=== PATIENT | male | born 1940 | race Caucasian/White ===

== ENCOUNTER 2017-09-22 08:59 | Emergency (ER) | payer MEDICARE, OTHER ==
--- NOTE | 2017-09-22 09:40 | EDM.PDOC ---
ED HPI GENERAL MEDICAL PROBLEM - General Chief Complaint: Trauma Stated Complaint: [id number] SLIPPED ON ICE AND HIT HEAD AT HOME Time Seen by Provider: 09/22/17 09:34 Source of Information: Reports: Patient History Limitations: Reports: No Limitations - History of Present Illness INITIAL COMMENTS - FREE TEXT/NARRATIVE: This 77 yo male patient reports to the ED due to a ground level fall, hitting the back of his head with a possible loss of consciousness. The patient reports he was going out to start his 's car this morning when he slipped on an icy patch and hit his head. The patient reports he was "seeing stars" after the fall. The patient has a wound to the back of his head with no active bleeding. Onset: Today Onset Date: 09/22/17 Onset Time: 07:30 Duration: Resolved Prior to Arrival Location: Reports: Head (posterior), Neck (right sided neck stiffness) Quality: Reports: Ache, Dull Severity: Moderate Improves with: Reports: None Worsens with: Reports: None Associated Symptoms: Reports: No Other Symptoms - Related Data Allergies Allergy/AdvReac Type Severity Reaction Status Date / Time codeine Allergy Cannot Verified 09/22/17 09:11 Remember Home Meds: Home Meds ALPRAZolam [Alprazolam ODT] 0.5 mg PO ASDIRECTED PRN 05/11/14 [History] Acetaminophen 500 mg PO ASDIRECTED PRN 05/11/14 [History] Aspirin [Ecotrin] 325 mg PO DAILY 05/11/14 [History] Enalapril [Vasotec] 10 mg PO DAILY 05/11/14 [History] Metoprolol Succinate [Toprol XL] 12.5 mg PO DAILY 05/11/14 [History] Nitroglycerin [Nitrostat] 0.4 mg SL ASDIRECTED PRN 05/11/14 [History] Multivitamin [One Daily Multivitamin] 1 tab PO DAILY 09/22/17 [History] Past Medical History HEENT History: 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, Impaired Vision Other HEENT History: reading glasses Cardiovascular History: Reports: Hypertension Other Cardiovascular History: open heart Respiratory History: Reports: None Gastrointestinal History: Reports: None Genitourinary History: Reports: Other (See Below) Other Genitourinary History: up once a night to go to the bathroom Musculoskeletal History: Reports: None Neurological History: Reports: None Psychiatric History: Reports: Anxiety Endocrine/Metabolic History: Reports: None Hematologic History: Reports: None Immunologic History: Reports: None Oncologic (Cancer) History: Reports: None Dermatologic History: Reports: None - Infectious Disease History Infectious Disease History: Reports: Measles - Past Surgical History Head Surgeries/Procedures: Reports: None Social & Family History - Tobacco Use Smoking Status *Q: Never Smoker Second Hand Smoke Exposure: No - Caffeine Use Caffeine Use: Reports: Coffee - Recreational Drug Use Recreational Drug Use: No Review of Systems - Review of Systems Review Of Systems: ROS reveals no pertinent complaints other than HPI. ED EXAM, GENERAL - Physical Exam Exam: See Below Exam Limited By: No Limitations General Appearance: Alert, WD/WN, Mild Distress Eye Exam: Bilateral Eye: EOMI, Normal Inspection, PERRL Ears: Normal External Exam, Normal Canal, Hearing Grossly Normal, Normal TMs Nose: Normal Inspection, Normal Mucosa, No Blood Throat/Mouth: Normal Inspection, Normal Lips, Normal Teeth, Normal Gums, Normal Oropharynx, Normal Voice, No Airway Compromise Head: Other (abrasion and contusion to the posterior scalp with no active bleeding) Neck: Supple, Tender Lateral (right neck to shoulder) Respiratory/Chest: No Respiratory Distress, Lungs Clear, Normal Breath Sounds, No Accessory Muscle Use, Chest Non-Tender Cardiovascular: Normal Peripheral Pulses, Regular Rate, Rhythm, No Edema, No Gallop, No JVD, No Murmur, No Rub GI/Abdominal: Normal Bowel Sounds, Soft, Non-Tender, No Organomegaly, No Distention, No Abnormal Bruit, No Mass (Male) Exam: Deferred Rectal (Males) Exam: Deferred Back Exam: Normal Inspection, Full Range of Motion, NT Extremities: Normal Inspection, Normal Range of Motion, Non-Tender, Normal Capillary Refill, No Pedal Edema Neurological: Alert, Oriented, CN II-XII Intact, Normal Cognition, Normal Gait, Normal Reflexes, No Motor/Sensory Deficits Psychiatric: Normal Affect, Normal Mood Skin Exam: Warm, Dry, Intact, Normal Color, No Rash Lymphatic: No Adenopathy Course - Vital Signs Last Recorded V/S: Last Vital Signs Temp 35.9 C 09/22/17 09:06 Pulse 54 L 09/22/17 09:06 Resp 16 09/22/17 09:06 BP 143/48 H 09/22/17 09:06 Pulse Ox 98 09/22/17 09:06 - Orders/Labs/Meds Orders: Active Orders 24 hr Category Date Time Status Cervical Spine wo Cont [CT] Urgent Exams 09/22/17 09:26 Ordered Head wo Cont [CT] Urgent Exams 09/22/17 09:26 Ordered Departure - Departure Time of Disposition: 10: Disposition: Home, Self-Care 01 Condition: Fair Clinical Impression: Fall from ground level Contusion of head Qualifiers: Encounter type: initial encounter Contusion of head detail: scalp Qualified Code(s): S00.03XA - Contusion of scalp, initial encounter - Discharge Information Instructions: Facial or Scalp Contusion, [id number], Fall Prevention in the Home, [id number] Forms: ED Department Discharge Care Plan Goals: The patient was advised of the examination and CT results during the visit. The patient was encouraged to rest and ice the area over the next 24 hours. If the patient has any additional symptoms or concerns, the patient should follow-up with his primary care facility or return to the emergency department. - My Orders Last 24 Hours: My Active Orders 09/22/17 09:26 Cervical Spine wo Cont [CT] Urgent Head wo Cont [CT] Urgent - Assessment/Plan Last 24 Hours: My Active Orders 09/22/17 09:26 Cervical Spine wo Cont [CT] Urgent Head wo Cont [CT] Urgent
--- NOTE | 2017-09-22 11:20 | CT ---
CLINICAL HISTORY: 77-year-old male who experienced ground-level fall (possible loss of consciousness) . SCAN TECHNIQUE: Volume acquisition of data from an emergency unenhanced CT scan of the head and brain obtained with the patient lying supine on the Siemens multislice CT scanner [place], [place]. All data archived in the PACS system for storage and study (bone/brain [employer]). INTERPRETATION: 1. Uniformly thick bony calvarium and symmetric clear pneumatization of the mastoid/paranasal sinuses . No sign of skull fracture, underlying brain contusion or epidural/subdural hematoma. 2. Generalized atrophy pattern symmetric and consistent with age. Underlying mirror-image normal vent ricular system. 3. Physiologic midline pineal calcifications (symmetric faint choroid plexus calcifications). 4. No focal areas of ischemic infarct or encephalomalacia. No sign of acute intracerebral/reticular/s ubarachnoid bleed. 5. cerebellum and brainstem unremarkable. CONCLUSION: Age-appropriate atrophy. No sign of skull fracture or closed head injury.
--- NOTE | 2017-09-22 11:40 | CT ---
CLINICAL HISTORY: 77-year-old male injured in ground-level fall (possible loss of consciousness). CT scan head unremarkable. SCAN TECHNIQUE: Volume acquisition of data from an emergency unenhanced CT scan of the cervical spine obtained with the patient lying supine on the Siemens multislice scanner [place], [place]. All data archived in the PACS system for storage, reformatting axial/sagittal/c oronal planes and study. INTERPRETATION: 1. 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 2. No sign of prevertebral soft tissue swelling, cervical fracture or spondylolisthesis. 3. No jumped locked facets or other interspace narrowing. No cervical rib anomalies. 4. Medial clavicles and first 2 ribs unremarkable on both sides. Lung apices clear. 5. No basal skull fracture. Symmetric clear pneumatization of the mastoid sinuses. Normal TMJs. CONCLUSION: No cervical fracture.
== END 2017-09-22 10:36 | disposition home or self-care (01) ==
LOC: DL.ED 08:59
DX: S00.03XA Contusion of scalp, initial encounter (principal); I10 Essential (primary) hypertension; Z88.5 Allergy status to narcotic agent; Z79.899 Other long term (current) drug therapy; Z79.82 Long term (current) use of aspirin; W00.0XXA Fall on same level due to ice and snow, initial encounter
CPT/HCPCS: 70450; 72125; 99283; 99284

== ENCOUNTER 2017-12-02 02:32 | Emergency (ER) | payer MEDICARE, OTHER ==
[2017-12-02] MEDS: Acetaminophen 325 MG Tab PO ONE (02:50)
--- NOTE | 2017-12-02 02:56 | EDM.PDOC ---
ED HPI GENERAL MEDICAL PROBLEM - General Chief Complaint: ENT Problem Stated Complaint: SORE THROAT [id number] Time Seen by Provider: 12/02/17 02:40 Source of Information: Reports: Patient History Limitations: Reports: No Limitations - History of Present Illness INITIAL COMMENTS - FREE TEXT/NARRATIVE: c/o fever chills, productive cough for 2 days. Decreased appetite, no vomiting. Cough productive. Throat Pain Score (Numeric/FACES): 5 - Related Data Allergies Allergy/AdvReac Type Severity Reaction Status Date / Time codeine Allergy Cannot Verified 12/02/17 02:38 Remember Home Meds: Home Meds ALPRAZolam [Alprazolam ODT] 0.5 mg PO ASDIRECTED PRN 05/11/14 [History] Acetaminophen 500 mg PO ASDIRECTED PRN 05/11/14 [History] Aspirin [Ecotrin] 325 mg PO DAILY 05/11/14 [History] Enalapril [Vasotec] 10 mg PO DAILY 05/11/14 [History] Metoprolol Succinate [Toprol XL] 12.5 mg PO DAILY 05/11/14 [History] Nitroglycerin [Nitrostat] 0.4 mg SL ASDIRECTED PRN 05/11/14 [History] Multivitamin [One Daily Multivitamin] 1 tab PO DAILY 09/22/17 [History] Past Medical History HEENT History: 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, Impaired Vision Other HEENT History: reading glasses Cardiovascular History: Reports: Hypertension Other Cardiovascular History: open heart Respiratory History: Reports: None Gastrointestinal History: Reports: None Genitourinary History: Reports: Other (See Below) Other Genitourinary History: up once a night to go to the bathroom Musculoskeletal History: Reports: None Neurological History: Reports: None Psychiatric History: Reports: Anxiety Endocrine/Metabolic History: Reports: None Hematologic History: Reports: None Immunologic History: Reports: None Oncologic (Cancer) History: Reports: None Dermatologic History: Reports: None - Infectious Disease History Infectious Disease History: Reports: Measles - Past Surgical History Head Surgeries/Procedures: Reports: None Social & Family History - Tobacco Use Smoking Status *Q: Never Smoker Second Hand Smoke Exposure: No - Caffeine Use Caffeine Use: Reports: Coffee - Recreational Drug Use Recreational Drug Use: No ED ROS ENT - Review of Systems Review Of Systems: ROS reveals no pertinent complaints other than HPI. ED EXAM, ENT - Physical Exam Exam: See Below Exam Limited By: No Limitations General Appearance: Alert, Mild Distress Eye Exam: Bilateral Eye: EOMI (sclera injected bilateral) Ears: Normal External Exam, TM Dullness Nose: Nasal Discharge (cloudy) Mouth/Throat: Pharyngeal Erythema Head: Atraumatic, Normocephalic Neck: Full Range of Motion, Lymphadenopathy (L), Lymphadenopathy (R) (mild) Respiratory/Chest: No Respiratory Distress, Rhonchi (right), Other (loose cough) Cardiovascular: Normal Peripheral Pulses, Regular Rate, Rhythm, No Edema GI/Abdominal: Normal Bowel Sounds, Soft, Non-Tender Back: Normal Inspection, Full Range of Motion Extremities: Normal Inspection, Normal Range of Motion, Non-Tender Neurological: Alert, Oriented, Normal Cognition, Other (tremor bilateral, usual per patient, worse with fever and chills) Psychiatric: Normal Affect Skin: Warm, Dry, Intact, Normal Color Course - Vital Signs Last Recorded V/S: Last Vital Signs Temp 101.5 F H 12/02/17 02:33 Pulse 83 12/02/17 02:33 Resp 18 12/02/17 02:33 BP 182/90 H 12/02/17 02:33 Pulse Ox 99 12/02/17 02:33 - Orders/Labs/Meds Orders: Active Orders 24 hr Category Date Time Status CXR [Chest 1V Frontal] [CR] Urgent Exams 12/02/17 02:53 Ordered COMPREHENSIVE METABOLIC PN,CMP [CHEM] Stat Lab 12/02/17 03:17 Received CULTURE BLOOD [BC] Stat Lab 12/02/17 03:17 Received CULTURE BLOOD [BC] Stat Lab 12/02/17 03:21 Received CULTURE STREP A CONFIRMATION [RM] Stat Lab 12/02/17 02:44 Results STREP SCRN A RAPID W CULT CONF [RM] Stat Lab 12/02/17 02:44 Results Blood Culture x2 Reflex Set [OM.PC] Stat Oth 12/02/17 02:53 Ordered Labs: Laboratory Tests 12/02/17 12/02/17 Range/Units 03:17 03:17 WBC 15.6 H (5.0-10.0) 10^3/uL RBC 4.65 (4.6-6.2) 10^6/uL Hgb 14.4 (14.0-18.0) g/dL Hct 42.2 (40.0-54.0) % MCV 90.8 (80-100) fL MCH 31.0 (27.0-34.0) pg MCHC 34.1 (33.0-35.0) g/dL Plt Count 200 (150-450) 10^3/uL Neut % (Auto) 87.8 H (42.2-75.2) % Lymph % (Auto) 4.7 L (20.5-50.1) % [place] % (Auto) 6.4 (2-8) % Eos % (Auto) 0.9 L (1.0-3.0) % Baso % (Auto) 0.2 (0.0-1.0) % Lactic Acid 0.7 (0.5-2.2) mmol/L Meds: Medications Discontinued Medications Generic Name Dose Route Start Last Admin Trade Name Freq PRN Reason Stop Dose Admin Acetaminophen 650 mg 12/02/17 02:46 12/02/17 02:50 Tylenol PO 12/02/17 02:47 650 mg NOW ONE Administration Levofloxacin 500 mg 12/02/17 03:45 Levaquin PO 12/02/17 03:46 ONETIME ONE Departure - Departure Time of Disposition: 03:47 Disposition: Home, Self-Care 01 Condition: Fair Clinical Impression: Upper respiratory infection Qualifiers: URI type: unspecified URI Qualified Code(s): J06.9 - Acute upper respiratory infection, unspecified - Discharge Information Instructions: Upper Respiratory Infection, Adult Forms: ED Department Discharge Additional Instructions: increase fluid intake tesselon pearles 100mg one every 8 hours as needed for cough tylenol 650mg every 4 hours as needed for fever levaquin 500mg one daily for one week clinic 1-2 days for follow up, urgent follow up if difficulty breathing - My Orders Last 24 Hours: My Active Orders 12/02/17 02:44 CULTURE STREP A CONFIRMATION [RM] Stat STREP SCRN A RAPID W CULT CONF [RM] Stat 12/02/17 02:53 CXR [Chest 1V Frontal] [CR] Urgent Blood Culture x2 Reflex Set [OM.PC] Stat 12/02/17 03:17 COMPREHENSIVE METABOLIC PN,CMP [CHEM] Stat CULTURE BLOOD [BC] Stat 12/02/17 03:21 CULTURE BLOOD [BC] Stat - Assessment/Plan Last 24 Hours: My Active Orders 12/02/17 02:44 CULTURE STREP A CONFIRMATION [RM] Stat STREP SCRN A RAPID W CULT CONF [RM] Stat 12/02/17 02:53 CXR [Chest 1V Frontal] [CR] Urgent Blood Culture x2 Reflex Set [OM.PC] Stat 12/02/17 03:17 COMPREHENSIVE METABOLIC PN,CMP [CHEM] Stat CULTURE BLOOD [BC] Stat 12/02/17 03:21 CULTURE BLOOD [BC] Stat
[2017-12-02 03:48] LABS: CHLORIDE,CL 97 mmol/L (101-111); SODIUM,NA 129 mmol/L (135-145)
[2017-12-02] MEDS: Levofloxacin 500 MG Tab PO ONE (03:54)
== END 2017-12-02 04:02 | disposition home or self-care (01) ==
LOC: DL.ED 02:32
DX: J06.9 Acute upper respiratory infection, unspecified (principal); I10 Essential (primary) hypertension; Z88.5 Allergy status to narcotic agent; Z79.899 Other long term (current) drug therapy; Z79.82 Long term (current) use of aspirin
CPT/HCPCS: 36415; 71045; 80053; 83605; 85025; 87040; 87081; 87430; 87804; 99283; A9270

== ENCOUNTER 2021-09-16 21:38 | Inpatient (IN) | payer MEDICARE, OTHER ==
[2021-09-16] MEDS ORDERED: Acetaminophen 325 MG Tab PO ONE (22:23)
--- NOTE | 2021-09-16 22:45 | EDM.PDOC ---
ED HPI GENERAL MEDICAL PROBLEM - General Stated Complaint: BAD COLD Time Seen by Provider: 09/16/21 23:00 Source of Information: Reports: Patient History Limitations: Reports: No Limitations - History of Present Illness INITIAL COMMENTS - FREE TEXT/NARRATIVE: This 81 yo male patient reports to the ED with a fever, cough, shortness of breath and increased tremors. The patient reports his symptoms started yesterday, but have gotten worse today. 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 - Related Data Allergies Allergy/AdvReac Type Severity Reaction Status Date / Time codeine Allergy Cannot Verified 12/02/17 02:38 Remember Home Meds: Home Meds ALPRAZolam [Alprazolam ODT] 0.5 mg PO ASDIRECTED PRN 05/11/14 [History] Acetaminophen 500 mg PO ASDIRECTED PRN 05/11/14 [History] Aspirin [Ecotrin EC] 325 mg PO DAILY 05/11/14 [History] Enalapril [Vasotec] 10 mg PO DAILY 05/11/14 [History] Metoprolol Succinate [Toprol XL] 12.5 mg PO DAILY 05/11/14 [History] Nitroglycerin [Nitrostat] 0.4 mg SL ASDIRECTED PRN 05/11/14 [History] Multivitamin [One Daily Multivitamin] 1 tab PO DAILY 09/22/17 [History] Past Medical History HEENT History: 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, Impaired Vision Other HEENT History: reading glasses Cardiovascular History: Reports: Hypertension Other Cardiovascular History: open heart Respiratory History: Reports: None Gastrointestinal History: Reports: None Genitourinary History: Reports: Other (See Below) Other Genitourinary History: up once a night to go to the bathroom Musculoskeletal History: Reports: None Neurological History: Reports: None Psychiatric History: Reports: Anxiety Endocrine/Metabolic History: Reports: None Hematologic History: Reports: None Immunologic History: Reports: None Oncologic (Cancer) History: Reports: None Dermatologic History: Reports: None - Infectious Disease History Infectious Disease History: Reports: Measles - Past Surgical History Head Surgeries/Procedures: Reports: None Social & Family History - Caffeine Use Caffeine Use: Reports: Coffee ED ROS GENERAL - Review of Systems Review Of Systems: Comprehensive ROS is negative, except as noted in HPI. ED EXAM, GENERAL - Physical Exam Exam: See Below Exam Limited By: No Limitations General Appearance: Alert, WD/WN, Moderate Distress Eye Exam: Bilateral Eye: EOMI, Normal Inspection, PERRL Ears: Normal External Exam, Normal Canal, Hearing Grossly Normal, Normal TMs Nose: Normal Inspection, Normal Mucosa, No Blood Throat/Mouth: Normal Inspection, Normal Lips, Normal Teeth, Normal Gums, Normal Oropharynx, Normal Voice, No Airway Compromise Head: Atraumatic, Normocephalic Neck: Normal Inspection, Supple, Non-Tender, Full Range of Motion Respiratory/Chest: No Accessory Muscle Use, Chest Non-Tender, Decreased Breath Sounds, Rhonchi (left sided) Cardiovascular: Normal Peripheral Pulses, Regular Rate, Rhythm, No Edema, No Gallop, No JVD, No Murmur, No Rub GI/Abdominal: Normal Bowel Sounds, Soft, Non-Tender, No Organomegaly, No Distention, No Abnormal Bruit, No Mass (Male) Exam: Deferred Rectal (Males) Exam: Deferred Back Exam: Normal Inspection, Full Range of Motion, NT Extremities: Normal Inspection Neurological: Alert, Oriented, CN II-XII Intact, Normal Cognition, Normal Gait, Normal Reflexes, No Motor/Sensory Deficits Psychiatric: Normal Affect, Normal Mood Skin Exam: Dry, Intact, Normal Color, No Rash, Increased Warmth Lymphatic: No Adenopathy #1 Interpretation EKG Date: 09/16/21 Time: 22:09 Rhythm: NSR Rate (Beats/Min): 99 [place]: Normal P-Wave: Present QRS: Normal ST-T: Normal QT: Normal Comparison: NA - No Prior EKG Course - Vital Signs Last Recorded V/S: Last Vital Signs Temp 103.4 F H 09/16/21 22:37 Pulse 120 H 09/16/21 22:37 Resp 26 H 09/16/21 22:37 BP 200/101 H 09/16/21 22:37 Pulse Ox 86 L 09/16/21 22:37 - Orders/Labs/Meds Orders: Active Orders 24 hr Category Date Time Status CULTURE BLOOD [BC] Stat Lab 09/16/21 22:20 Received CULTURE BLOOD [BC] Stat Lab 09/16/21 22:59 Ordered CULTURE STREP A CONFIRMATION [] Stat Lab 09/16/21 22:29 Results STREP SCRN A RAPID W CULT CONF [] Stat Lab 09/16/21 22:29 Ordered Azithromycin [Zithromax] 500 mg Med 09/17/21 00:29 Ordered Sodium Chloride 0.9% [Normal Saline AdvBag] 250 ml IV ONETIME Medication Orders Azithromycin 500 mg/ Sodium (Chloride) 250 mls @ 250 mls/hr IV ONETIME ONE Stop: 09/17/21 01:28 Last Admin: 09/17/21 00:43 Dose: 250 mls/hr Documented by: MARY ANNE Labs: Laboratory Tests 09/16/21 09/16/21 09/16/21 Range/Units 22:05 22:20 22:20 WBC 12.6 H (5.0-10.0) 10^3/uL RBC 4.50 L (4.6-6.2) 10^6/uL Hgb 14.4 (14.0-18.0) g/dL Hct 42.2 (40.0-54.0) % MCV 93.8 D (80-100) fL MCH 32.0 (27.0-34.0) pg MCHC 34.1 (33.0-35.0) g/dL Plt Count 208 (150-450) 10^3/uL Neut % (Auto) 90.2 H (42.2-75.2) % Lymph % (Auto) 5.4 L (20.5-50.1) % [place] % (Auto) 3.7 (2-8) % Eos % (Auto) 0.5 L (1.0-3.0) % Baso % (Auto) 0.2 (0.0-1.0) % D-Dimer, Quantitative 550 H (0-400) ng/mL Sodium (136-145) mmol/L Potassium (3.5-5.1) mmol/L Chloride (98-107) mmol/L Carbon Dioxide (21-32) mmol/L Anion Gap (7-13) mEq/L BUN (7-18) mg/dL Creatinine (0.70-1.30) mg/dL Est Cr Clr Drug Dosing mL/min Estimated GFR (MDRD) BUN/Creatinine Ratio (No establ ref range) Glucose (70-99) mg/dL Lactic Acid (0.4-2.0) mmol/L Calcium (8.5-10.1) mg/dL Total Bilirubin (0.2-1.0) mg/dL AST (15-37) U/L ALT (16-63) U/L Alkaline Phosphatase (46-116) U/L Troponin I High Sens (<=76) pg/mL Total Protein (6.4-8.2) g/dL Albumin (3.4-5.0) g/dL Globulin Albumin/Globulin Ratio Influenza Type A RNA Negative (NEGATIVE) Influenza Type B RNA Negative (NEGATIVE) SARS-CoV-2 RNA (MARIO) Negative (NEGATIVE) 09/16/21 09/16/21 09/16/21 Range/Units 22:20 22:20 22:20 WBC (5.0-10.0) 10^3/uL RBC (4.6-6.2) 10^6/uL Hgb (14.0-18.0) g/dL Hct (40.0-54.0) % MCV (80-100) fL MCH (27.0-34.0) pg MCHC (33.0-35.0) g/dL Plt Count (150-450) 10^3/uL Neut % (Auto) (42.2-75.2) % Lymph % (Auto) (20.5-50.1) % [place] % (Auto) (2-8) % Eos % (Auto) (1.0-3.0) % Baso % (Auto) (0.0-1.0) % D-Dimer, Quantitative (0-400) ng/mL Sodium 135 L (136-145) mmol/L Potassium 4.2 (3.5-5.1) mmol/L Chloride 100 (98-107) mmol/L Carbon Dioxide 27 (21-32) mmol/L Anion Gap 12.2 (7-13) mEq/L BUN 17 (7-18) mg/dL Creatinine 1.13 (0.70-1.30) mg/dL Est Cr Clr Drug Dosing 52.04 mL/min Estimated GFR (MDRD) > 60 BUN/Creatinine Ratio 15.0 (No establ ref range) Glucose 153 H (70-99) mg/dL Lactic Acid 1.2 (0.4-2.0) mmol/L Calcium 9.1 (8.5-10.1) mg/dL Total Bilirubin 1.1 H (0.2-1.0) mg/dL AST 13 L (15-37) U/L ALT 22 (16-63) U/L Alkaline Phosphatase 89 (46-116) U/L Troponin I High Sens 15 (<=76) pg/mL Total Protein 6.6 (6.4-8.2) g/dL Albumin 3.4 (3.4-5.0) g/dL Globulin 3.2 Albumin/Globulin Ratio 1.1 Influenza Type A RNA (NEGATIVE) Influenza Type B RNA (NEGATIVE) SARS-CoV-2 RNA (MARIO) (NEGATIVE) Meds: Medications Generic Name Dose Route Start Last Admin Trade Name Freq PRN Reason Stop Dose Admin Azithromycin 500 mg/ Sodium 250 mls @ 250 mls/hr 09/17/21 00:29 09/17/21 00:43 Chloride IV 09/17/21 01:28 250 mls/hr ONETIME ONE Administration Discontinued Medications Generic Name Dose Route Start Last Admin Trade Name Freq PRN Reason Stop Dose Admin Acetaminophen 650 mg 09/16/21 22:23 09/16/21 22:28 Acetaminophen 325 Mg Tab PO 09/16/21 22:24 650 mg NOW ONE Administration Ceftriaxone Sodium 1 gm/ 50 mls @ 100 mls/hr 09/16/21 23:27 09/16/21 23:38 Sodium Chloride IV 09/16/21 23:56 100 mls/hr ONETIME ONE Administration - Radiology Interpretation Free Text/Narrative:: [facility] Final Radiology Report Call: [phone] assistance Online chat: [email or web address] Name: PABLITO SANFORD Age: 81Years M Date: 09/16/2021 SSN: -- : [id number] Study: CR CHEST 2V Requesting Physician: Darrian Luong Images: 3 Addl Studies: Provided Clinical History: cough, short of breath, elevated WBC Contrast: Contrast Medium: Contrast Amount: Contrast Method: CONFIDENTIALITY STATEMENT This report is intended only for use by the referring physician, and only in accordance with law. If you received this in error, call [phone]. Page 1 of 1 PROCEDURE INFORMATION: Exam: XR Chest Exam date and time: 09/16/2021 11:27 PM Age: 81 years old Clinical indication: Other: Cough, short of breath, elevated wbc TECHNIQUE: Imaging protocol: XR of the chest. Views: 2 views. COMPARISON: No relevant prior studies available. FINDINGS: Lungs: There is moderate nonspecific patchy linear density at left lung base which could be atelectatic, or inflammatory. There are scattered linear densities in both lungs which are likely fibrotic or atelectatic. There is no evidence of pulmonary edema. Pleural spaces: No pleural effusion. No pneumothorax. Heart/Mediastinum: The heart is not enlarged. Bones/joints: Status post median sternotomy. No acute bony findings are identified. IMPRESSION: There is moderate nonspecific patchy linear density at left lung base which could be atelectatic, or inflammatory. Thank you for allowing us to participate in the care of your patient. Dictated and Authenticated by: Arthur Negron MD 09/17/2021 12:42 AM Central Time ([place] & [place]) Departure - Departure Time of Disposition: 00:48 Disposition: Admitted As Inpatient 65 Condition: Fair Clinical Impression: Hypoxemia Community acquired pneumonia Qualifiers: Laterality: left Lung location: lower lobe of lung Qualified Code(s): J18.9 - Pneumonia, unspecified organism - Discharge Information *PRESCRIPTION DRUG MONITORING PROGRAM REVIEWED*: Not Applicable *COPY OF PRESCRIPTION DRUG MONITORING REPORT IN PATIENT CHELO: Not Applicable Care Plan Goals: Discussed the patient's history, examination, x-ray results and treatments with Dr. Coppola. Dr. Coppola accepted the patient for continued evaluation and management as an inpatient at [facility] in [place]. Sepsis Event Note (ED) - Evaluation Sepsis Screening Result: Possible Sepsis Risk - Focused Exam Vital Signs: Vital Signs Temp Temp Pulse Resp BP Pulse Ox 09/16/21 22:37 103.4 F H 120 H 26 H 200/101 H 86 L 09/16/21 22:28 103.4 F H - My Orders Last 24 Hours: My Active Orders 09/16/21 22:20 CULTURE BLOOD [BC] Stat 09/16/21 22:29 CULTURE STREP A CONFIRMATION [RM] Stat STREP SCRN A RAPID W CULT CONF [] Stat 09/16/21 22:59 CULTURE BLOOD [BC] Stat 09/17/21 00:29 Azithromycin [Zithromax] 500 mg Sodium Chloride 0.9% [Normal Saline AdvBag] 250 ml IV ONETIME - Assessment/Plan Last 24 Hours: My Active Orders 09/16/21 22:20 CULTURE BLOOD [BC] Stat 09/16/21 22:29 CULTURE STREP A CONFIRMATION [RM] Stat STREP SCRN A RAPID W CULT CONF [RM] Stat 09/16/21 22:59 CULTURE BLOOD [BC] Stat 09/17/21 00:29 Azithromycin [Zithromax] 500 mg Sodium Chloride 0.9% [Normal Saline AdvBag] 250 ml IV ONETIME
[2021-09-16 22:52] LABS: ANION GAP 12.2 mEq/L (7-13); CHLORIDE,CL 100 mmol/L (98-107); SODIUM,NA 135 mmol/L (136-145)
[2021-09-16 23:11] LABS: CORONAVIRUS COVID-19 NAA NEGATIVE (NEGATIVE)
[2021-09-16] MEDS ORDERED: cefTRIAXone 1 GM in Sodium Chloride 0.9% 50 ML IV ONE (23:27)
[2021-09-17] MEDS ORDERED: Azithromycin 500 MG in Sodium Chloride 0.9% 250 ML IV ONE (00:29)
--- NOTE | 2021-09-17 00:42 | CR ---
PROCEDURE INFORMATION: Exam: XR Chest Exam date and time: 09/16/2021 11:27 PM Age: 81 years old Clinical indication: Other: Cough, short of breath, elevated wbc TECHNIQUE: Imaging protocol: XR of the chest. Views: 2 views. COMPARISON: No relevant prior studies available. FINDINGS: Lungs: There is moderate nonspecific patchy linear density at left lung base which could be atelectatic, or inflammatory. There are scattered linear densities in both lungs which are likely fibrotic or atelectatic. There is no evidence of pulmonary edema. Pleural spaces: No pleural effusion. No pneumothorax. Heart/Mediastinum: The heart is not enlarged. Bones/joints: Status post median sternotomy. No acute bony findings are identified. IMPRESSION: There is moderate nonspecific patchy linear density at left lung base which could be atelectatic, or inflammatory.
[2021-09-17] MEDS ORDERED: Temazepam 15 MG Cap PO PRN (01:54)
[2021-09-17] MEDS ORDERED: Acetaminophen 650 MG Supp RECTAL PRN (01:54)
[2021-09-17] MEDS ORDERED: Ondansetron 4 MG Tab.DIS PO PRN (01:54)
[2021-09-17] MEDS ORDERED: oxyCODONE 5 MG Tab PO PRN (01:54)
[2021-09-17] MEDS ORDERED: Sodium Chloride 0.9% 10 ML Syringe FLUSH PRN (01:54)
[2021-09-17] MEDS ORDERED: Morphine 2 MG/ML SYRINGE IVPUSH PRN (01:54)
--- NOTE | 2021-09-17 02:01 | PCM.HP ---
H&P History of Present Illness - General Date of Service: 09/17/21 Admit Problem/Dx: Admission Diagnosis/Problem Admission Diagnosis/Problem Pneumonia Source of Information: Patient - History of Present Illness Initial Comments - Free Text/Narative: 81 yo with h/o htn, cad, tremor presented with fever, cough, increased tremor symptoms started 1-2 days prior to admission with sore throat worsening every day associated with sob no abd pain no sick/covid contact - Related Data Allergies/Adverse Reactions: Allergies Allergy/AdvReac Type Severity Reaction Status Date / Time codeine Allergy Cannot Verified 12/02/17 02:38 Remember Home Medications: Home Meds ALPRAZolam [Alprazolam ODT] 0.5 mg PO ASDIRECTED PRN 05/11/14 [History] Acetaminophen 500 mg PO ASDIRECTED PRN 05/11/14 [History] Aspirin [Ecotrin EC] 325 mg PO DAILY 05/11/14 [History] Enalapril [Vasotec] 20 mg PO DAILY 05/11/14 [History] Nitroglycerin [Nitrostat] 0.4 mg SL ASDIRECTED PRN 05/11/14 [History] Multivitamin [One Daily Multivitamin] 1 tab PO DAILY 09/22/17 [History] Simvastatin 40 mg PO DAILY 09/17/21 [History] amLODIPine [Norvasc] 5 mg PO DAILY 09/17/21 [History] Past Medical History HEENT History: 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, Impaired Vision Other HEENT History: reading glasses Cardiovascular History: Reports: Hypertension, Stents Other Cardiovascular History: open heart Respiratory History: Reports: None Gastrointestinal History: Reports: None Genitourinary History: Reports: Other (See Below) Other Genitourinary History: up once a night to go to the bathroom Musculoskeletal History: Reports: None Neurological History: Reports: Other (See Below) 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 Psychiatric History: Reports: Anxiety Endocrine/Metabolic History: Reports: None Hematologic History: Reports: None Immunologic History: Reports: None Oncologic (Cancer) History: Reports: None Dermatologic History: Reports: None - Infectious Disease History Infectious Disease History: Reports: Measles - Past Surgical History Head Surgeries/Procedures: Reports: None Cardiovascular Surgical History: Reports: Coronary Artery Bypass Social & Family History - Tobacco Use Tobacco Use Status *Q: Unknown Ever Used Tobacco - Caffeine Use Caffeine Use: Reports: Coffee H&P Review of Systems - Review of Systems: Review Of Systems: See Below General: Reports: Fever, Chills, Malaise, Weakness Pulmonary: Reports: Shortness of Breath Cardiovascular: Reports: Chest Pain Gastrointestinal: Denies: Abdominal Pain Genitourinary: Denies: Dysuria Skin: Denies: Jaundice Psychiatric: Denies: Confusion Neurological: Reports: Tremors Exam - Exam Exam: See Below - Vital Signs Vital Signs: Last Vital Signs Temp 98.5 F 09/17/21 01:13 Pulse 80 09/17/21 01:13 Resp 18 09/17/21 01:13 BP 117/51 L 09/17/21 01:13 Pulse Ox 96 09/17/21 01:13 Weight: 207 lb 9.6 oz - Exam Quality Assessment: Supplemental Oxygen General: Alert, Oriented Neck: Supple, Trachea Midline Lungs: Normal Respiratory Effort, Decreased Breath Sounds Cardiovascular: Regular Rate, Regular Rhythm GI/Abdominal Exam: Normal Bowel Sounds, Soft, Non-Tender Extremities: No Pedal Edema - Patient Data Lab Results Last 24 hrs: Laboratory Results - last 24 hr 09/16/21 09/16/21 09/16/21 Range/Units 22:05 22:20 22:20 WBC 12.6 H (5.0-10.0) 10^3/uL RBC 4.50 L (4.6-6.2) 10^6/uL Hgb 14.4 (14.0-18.0) g/dL Hct 42.2 (40.0-54.0) % MCV 93.8 D (80-100) fL MCH 32.0 (27.0-34.0) pg MCHC 34.1 (33.0-35.0) g/dL Plt Count 208 (150-450) 10^3/uL Neut % (Auto) 90.2 H (42.2-75.2) % Lymph % (Auto) 5.4 L (20.5-50.1) % [place] % (Auto) 3.7 (2-8) % Eos % (Auto) 0.5 L (1.0-3.0) % Baso % (Auto) 0.2 (0.0-1.0) % D-Dimer, Quantitative 550 H (0-400) ng/mL Sodium (136-145) mmol/L Potassium (3.5-5.1) mmol/L Chloride (98-107) mmol/L Carbon Dioxide (21-32) mmol/L Anion Gap (7-13) mEq/L BUN (7-18) mg/dL Creatinine (0.70-1.30) mg/dL Est Cr Clr Drug Dosing mL/min Estimated GFR (MDRD) BUN/Creatinine Ratio (No establ ref range) Glucose (70-99) mg/dL Lactic Acid (0.4-2.0) mmol/L Calcium (8.5-10.1) mg/dL Total Bilirubin (0.2-1.0) mg/dL AST (15-37) U/L ALT (16-63) U/L Alkaline Phosphatase (46-116) U/L Troponin I High Sens (<=76) pg/mL Total Protein (6.4-8.2) g/dL Albumin (3.4-5.0) g/dL Globulin Albumin/Globulin Ratio Influenza Type A RNA Negative (NEGATIVE) Influenza Type B RNA Negative (NEGATIVE) SARS-CoV-2 RNA (MARIO) Negative (NEGATIVE) 09/16/21 09/16/21 09/16/21 Range/Units 22:20 22:20 22:20 WBC (5.0-10.0) 10^3/uL RBC (4.6-6.2) 10^6/uL Hgb (14.0-18.0) g/dL Hct (40.0-54.0) % MCV (80-100) fL MCH (27.0-34.0) pg MCHC (33.0-35.0) g/dL Plt Count (150-450) 10^3/uL Neut % (Auto) (42.2-75.2) % Lymph % (Auto) (20.5-50.1) % [place] % (Auto) (2-8) % Eos % (Auto) (1.0-3.0) % Baso % (Auto) (0.0-1.0) % D-Dimer, Quantitative (0-400) ng/mL Sodium 135 L (136-145) mmol/L Potassium 4.2 (3.5-5.1) mmol/L Chloride 100 (98-107) mmol/L Carbon Dioxide 27 (21-32) mmol/L Anion Gap 12.2 (7-13) mEq/L BUN 17 (7-18) mg/dL Creatinine 1.13 (0.70-1.30) mg/dL Est Cr Clr Drug Dosing 52.04 mL/min Estimated GFR (MDRD) > 60 BUN/Creatinine Ratio 15.0 (No establ ref range) Glucose 153 H (70-99) mg/dL Lactic Acid 1.2 (0.4-2.0) mmol/L Calcium 9.1 (8.5-10.1) mg/dL Total Bilirubin 1.1 H (0.2-1.0) mg/dL AST 13 L (15-37) U/L ALT 22 (16-63) U/L Alkaline Phosphatase 89 (46-116) U/L Troponin I High Sens 15 (<=76) pg/mL Total Protein 6.6 (6.4-8.2) g/dL Albumin 3.4 (3.4-5.0) g/dL Globulin 3.2 Albumin/Globulin Ratio 1.1 Influenza Type A RNA (NEGATIVE) Influenza Type B RNA (NEGATIVE) SARS-CoV-2 RNA (MARIO) (NEGATIVE) Result Diagrams: 09/16/21 22:20 09/16/21 22:20 Wolfgang Results Last 24 hrs: Microbiology 09/16/21 22:29 Group A Streptococcus Rapid Screen - Final Throat NEGATIVE STREP A SCREEN REFERENCE RANGE: NEGATIVE - Problem List (1) Community acquired pneumonia SNOMED Code(s): 000934811 ICD Code: J18.9 - PNEUMONIA, UNSPECIFIED ORGANISM Status: Acute Current Visit: No Qualifiers: Laterality: left Lung location: lower lobe of lung Qualified Code(s): J18.9 - Pneumonia, unspecified organism (2) Hypoxemia SNOMED Code(s): 677574087 ICD Code: R09.02 - HYPOXEMIA Status: Acute Current Visit: No Problem List Initiated/Reviewed/Updated: Yes Orders Last 24hrs: Active Orders 24 hr Category Date Time Status Admission Diagnosis [ADT] Urgent ADT 09/17/21 00:46 Ordered Admission Status [Patient Status] [ADT] Routine ADT 09/17/21 00:46 Active Oxygen Therapy [RC] PRN Care 09/17/21 01:54 Ordered Peripheral IV Care [RC] . DIRECTED Care 09/17/21 01:55 Ordered Up With Assistance [RC] ASDIRECTED Care 09/17/21 01:54 Ordered VTE/DVT Education [RC] PER UNIT ROUTINE Care 09/17/21 01:54 Ordered Vital Signs [RC] Q4H Care 09/17/21 01:54 Ordered Regular Diet [DIET] Diet 09/17/21 Breakfast Ordered BASIC METABOLIC PANEL,BMP [CHEM] AM Lab 09/18/21 05:15 Ordered CBC WITH AUTO DIFF [HEME] AM Lab 09/18/21 05:15 Ordered CULTURE BLOOD [BC] Stat Lab 09/16/21 22:20 Received CULTURE BLOOD [BC] Stat Lab 09/16/21 23:10 Received CULTURE SPUTUM + SMEAR [RM] Routine Lab 09/17/21 01:52 Ordered CULTURE STREP A CONFIRMATION [] Stat Lab 09/16/21 22:29 Results STREP SCRN A RAPID W CULT CONF [] Stat Lab 09/16/21 22:29 Results ALPRAZolam [Alprazolam ODT] Med 09/17/21 01:53 Ordered 0.5 mg PO Q6H PRN Acetaminophen [Tylenol] Med 09/17/21 01:54 Ordered 650 mg RECTAL Q4H PRN Aspirin [Ecotrin] Med 09/17/21 09:00 Ordered 325 mg PO DAILY Azithromycin [Zithromax] 500 mg Med 09/17/21 09:00 Ordered Sodium Chloride 0.9% [Normal Saline AdvBag] 250 ml IV Q24H Enalapril [Vasotec] Med 09/17/21 09:00 Ordered 10 mg PO DAILY Heparin Sodium Med 09/17/21 06:00 Ordered 5,000 units SUBCUT Q8HR Metoprolol Succinate [Toprol XL] Med 09/17/21 09:00 Ordered 12.5 mg PO DAILY Morphine Med 09/17/21 01:54 Ordered 1 mg IVPUSH Q2H PRN Multivitamin [One Daily Multivitamin] Med 09/17/21 09:00 Ordered 1 tab PO DAILY Ondansetron [Zofran ODT] Med 09/17/21 01:54 Ordered 4 mg PO Q6H PRN Sodium Chloride 0.9% [Saline Flush] Med 09/17/21 09:00 Ordered 10 ml FLUSH 0900,2100 Sodium Chloride 0.9% [Saline Flush] Med 09/17/21 01:54 Ordered 10 ml FLUSH ASDIRECTED PRN Temazepam [Restoril] Med 09/17/21 01:54 Ordered 15 mg PO BEDTIME PRN cefTRIAXone [Rocephin] 1 gm Med 09/17/21 09:00 Ordered Sodium Chloride 0.9% [Normal Saline AdvBag] 50 ml IV Q24H oxyCODONE Med 09/17/21 01:54 Ordered 5 mg PO Q4H PRN Peripheral IV Insertion Adult [OM.PC] Routine Oth 09/17/21 01:54 Ordered Saline Lock Insert [OM.PC] Routine Oth 09/17/21 01:54 Ordered Resuscitation Status Routine Resus Stat 09/17/21 01:54 Ordered Medication Orders Aspirin (Aspirin 325 Mg Tab.Ec) 325 mg PO DAILY MAXINE Enalapril Maleate (Enalapril 10 Mg Tab) 10 mg PO DAILY MAXIEN Azithromycin 500 mg/ Sodium (Chloride) 250 mls @ 250 mls/hr IV Q24H MAXINE Ceftriaxone Sodium 1 gm/ (Sodium Chloride) 50 mls @ 100 mls/hr IV Q24H MAXINE Metoprolol Succinate (Metoprolol Succinate 25 Mg Tab.Er) 12.5 mg PO DAILY MAXINE Non-Formulary Medication (Alprazolam [Alprazolam Odt]) 0.5 mg PO Q6H PRN PRN Reason: Anxiety Non-Formulary Medication (Multivitamin [One Daily Multivitamin]) 1 tab PO DAILY MAXINE Assessment/Plan Comment:: community acquired pneumonia obtain blood cx obtain sputum cx treat with azithro rocephin acute hypoxemic respiratory failure supplement oxygen as needed cad, htn cont asa, metoprolol, lisinopril dvt prophylaxis sq heparin wish to have DNR code status
[2021-09-17] MEDS: Heparin Sodium 5,000 Units/ML Vial SUBCUT SCH ×3 (07:34→21:17)
[2021-09-17] MEDS ORDERED: Metoprolol Succinate 25 MG Tab.ER PO SCH (09:00)
[2021-09-17] MEDS: Sodium Chloride 0.9% 10 ML Syringe FLUSH SCH ×2 (14:22→21:18)
[2021-09-17] MEDS: Aspirin 325 MG Tab.EC PO SCH (15:00)
[2021-09-17] MEDS ORDERED: ALPRAZolam 0.5 MG Tab PO PRN (16:16)
[2021-09-17] MEDS ORDERED: Azithromycin 500 MG in Sodium Chloride 0.9% 250 ML IV SCH (20:00)
[2021-09-17] MEDS ORDERED: Simvastatin 40 MG Tab PO SCH (21:00)
[2021-09-17] MEDS ORDERED: cefTRIAXone 1 GM in Sodium Chloride 0.9% 50 ML IV SCH (21:00)
[2021-09-18] MEDS: guaiFENesin 100 MG/5 ML Soln 5 ML UD Cup PO PRN ×2 (00:47→10:55)
[2021-09-18] MEDS: Acetaminophen 325 MG Tab PO PRN ×2 (01:11→10:55)
[2021-09-18] MEDS: Heparin Sodium 5,000 Units/ML Vial SUBCUT SCH (05:48)
[2021-09-18 07:01] LABS: ANION GAP 12.1 mEq/L (7-13)
[2021-09-18] MEDS: Aspirin 325 MG Tab.EC PO SCH (08:04)
[2021-09-18] MEDS: Sodium Chloride 0.9% 10 ML Syringe FLUSH SCH (08:05)
[2021-09-18] MEDS ORDERED: Benzocaine/Cetylpyridinium/Menthol Lozenge MUCMEM PRN (08:41)
[2021-09-18] MEDS ORDERED: amLODIPine 5 MG Tab PO SCH (09:00)
[2021-09-18] MEDS ORDERED: Multivitamin Tab PO SCH (09:00)
--- NOTE | 2021-09-18 10:18 | PCM.DCSUM1 ---
Discharge Summary - Hospital Course Free Text/Narrative:: presented with sore throat, fever, sob community acquired pneumonia blood cx: neg treated with azithro, rocephin no more fever cont sore throat - improving will finish Abx treatment with augmentin acute hypoxemic respiratory failure noted on admission resolved cad, htn cont asa, metoprolol, lisinopril Diagnosis: Stroke: No - Discharge Data Discharge Date: 09/18/21 Discharge Disposition: Home, Self-Care 01 Condition: Fair - Referral to Home Health Primary Care Physician: PCP None - Discharge Diagnosis/Problem(s) (1) Community acquired pneumonia SNOMED Code(s): 054947237 ICD Code: J18.9 - PNEUMONIA, UNSPECIFIED ORGANISM Status: Acute Current Visit: No Qualifiers: Laterality: left Lung location: lower lobe of lung Qualified Code(s): J18.9 - Pneumonia, unspecified organism (2) Hypoxemia SNOMED Code(s): 648040810 ICD Code: R09.02 - HYPOXEMIA Status: Acute Current Visit: No - Patient Instructions Diet: Heart Healthy Diet Activity: As Tolerated - Discharge Plan *PRESCRIPTION DRUG MONITORING PROGRAM REVIEWED*: Not Applicable *COPY OF PRESCRIPTION DRUG MONITORING REPORT IN PATIENT CHELO: Not Applicable Prescriptions/Med Rec: Amoxicillin/Clavulanate K [Augmentin 500-125 MG] 1 tab PO TID #21 tab Benzocaine/Menthol [Cepacol Sore Throat Lozenge] 1 each MM Q6H #30 lozenge Home Medications: Home Meds ALPRAZolam [Alprazolam ODT] 0.5 mg PO DAILY PRN 05/11/14 [History] Acetaminophen 500 mg PO ASDIRECTED PRN 05/11/14 [History] Aspirin [Ecotrin EC] 325 mg PO DAILY 05/11/14 [History] Enalapril [Vasotec] 20 mg PO DAILY 05/11/14 [History] Nitroglycerin [Nitrostat] 0.4 mg SL ASDIRECTED PRN 05/11/14 [History] Multivitamin [One Daily Multivitamin] 1 tab PO DAILY 09/22/17 [History] Simvastatin 40 mg PO DAILY 09/17/21 [History] amLODIPine [Norvasc] 5 mg PO DAILY 09/17/21 [History] Amoxicillin/Clavulanate K [Augmentin 500-125 MG] 1 tab PO TID #21 tab 09/18/21 [Rx] Benzocaine/Menthol [Cepacol Sore Throat Lozenge] 1 each MM Q6H #30 lozenge 09/18/21 [Rx] guaiFENesin [Robitussin] 100 mg PO Q6H PRN #15 cup 09/18/21 [Rx] Patient Handouts: Community-Acquired Pneumonia, Adult, [id number] Referrals: Jasmina Puri NP [Ordering Only Provider] - - Discharge Summary/Plan Comment DC Time >30 min.: No Total # of Minutes for Discharge Time: 20 min - General Info Date of Service: 09/18/21 Functional Status: Reports: Pain Controlled, Tolerating Diet, Ambulating - Review of Systems General: Denies: Fever HEENT: Reports: Sore Throat Pulmonary: Denies: Shortness of Breath Cardiovascular: Denies: Chest Pain Neurological: Denies: Confusion - Patient Data Vitals - Most Recent: Last Vital Signs Temp 98.9 F 09/18/21 07:47 Pulse 59 L 09/18/21 07:47 Resp 20 09/18/21 07:47 BP 122/49 L 09/18/21 08:04 Pulse Ox 93 L 09/18/21 09:48 Weight - Most Recent: 207 lb 9.6 oz I&O - Last 24 hours: Intake & Output 09/17/21 09/18/21 09/18/21 22:59 06:59 14:59 Intake Total 300 200 Balance 300 200 Lab Results - Last 24 hrs: Laboratory Results - last 24 hr 09/18/21 09/18/21 Range/Units 06:18 06:18 WBC 8.0 (5.0-10.0) 10^3/uL RBC 3.85 L (4.6-6.2) 10^6/uL Hgb 12.2 L D (14.0-18.0) g/dL Hct 37.0 L (40.0-54.0) % MCV 96.1 (80-100) fL MCH 31.7 (27.0-34.0) pg MCHC 33.0 (33.0-35.0) g/dL Plt Count 159 (150-450) 10^3/uL Neut % (Auto) 78.1 H (42.2-75.2) % Lymph % (Auto) 14.0 L (20.5-50.1) % [place] % (Auto) 6.0 (2-8) % Eos % (Auto) 1.6 (1.0-3.0) % Baso % (Auto) 0.3 (0.0-1.0) % Sodium 137 (136-145) mmol/L Potassium 4.1 (3.5-5.1) mmol/L Chloride 103 (98-107) mmol/L Carbon Dioxide 26 (21-32) mmol/L Anion Gap 12.1 (7-13) mEq/L BUN 17 (7-18) mg/dL Creatinine 1.21 (0.70-1.30) mg/dL Est Cr Clr Drug Dosing 48.60 mL/min Estimated GFR (MDRD) 57 Glucose 107 H (70-99) mg/dL Calcium 8.7 (8.5-10.1) mg/dL PATRICIA Results - Last 24 hrs: Microbiology 09/17/21 06:00 Gram Stain - Final Sputum - Expectorated Sputum Culture - Preliminary NORMAL RESPIRATORY CARMEN 1 DAY 09/16/21 23:10 Aerobic Blood Culture - Preliminary Blood NO GROWTH AFTER 1 DAY Anaerobic Blood Culture - Preliminary NO GROWTH AFTER 1 DAY 09/16/21 22:20 Aerobic Blood Culture - Preliminary Blood NO GROWTH AFTER 1 DAY Anaerobic Blood Culture - Preliminary NO GROWTH AFTER 1 DAY 09/16/21 22:29 Quick Strep Confirmation Culture - Final Throat NO GROUP A STREP ISOLATED REFERENCE RANGE: NEGATIVE Group A Streptococcus Rapid Screen - Final NEGATIVE STREP A SCREEN REFERENCE RANGE: NEGATIVE Med Orders - Current: Current Medications Acetaminophen (Acetaminophen 325 Mg Tab) 650 mg PO Q4H PRN PRN Reason: Fever Last Admin: 09/18/21 01:11 Dose: 650 mg Documented by: Alprazolam (Alprazolam 0.5 Mg Tab) 0.5 mg PO Q6H PRN PRN Reason: Anxiety Amlodipine Besylate (Amlodipine 5 Mg Tab) 5 mg PO DAILY [facility] Last Admin: 09/18/21 08:04 Dose: 5 mg Documented by: Aspirin (Aspirin 325 Mg Tab.Ec) 325 mg PO DAILY [facility] Last Admin: 09/18/21 08:04 Dose: 325 mg Documented by: Benzocaine/Menthol (Benzocaine/Cetylpyridinium/Menthol Lozenge) 1 lozenge MUCMEM Q6H PRN PRN Reason: Sore Throat Enalapril Maleate (Enalapril 10 Mg Tab) 20 mg PO DAILY [facility] Last Admin: 09/18/21 08:04 Dose: 20 mg Documented by: Guaifenesin (Guaifenesin 100 Mg/5 Ml Soln 5 Ml Ud Cup) 100 mg PO Q6H PRN PRN Reason: Cough Last Admin: 09/18/21 00:47 Dose: 100 mg Documented by: Heparin Sodium (Porcine) (Heparin Sodium 5,000 Units/Ml Vial) 5,000 units SUBCUT Q8HR [facility] Last Admin: 09/18/21 05:48 Dose: 5,000 units Documented by: Azithromycin 500 mg/ Sodium (Chloride) 250 mls @ 250 mls/hr IV Q24H [facility] Last Admin: 09/17/21 20:02 Dose: 250 mls/hr Documented by: Ceftriaxone Sodium 1 gm/ (Sodium Chloride) 50 mls @ 100 mls/hr IV Q24H [facility] Last Admin: 09/17/21 21:18 Dose: 100 mls/hr Documented by: Morphine Sulfate (Morphine 2 Mg/Ml Syringe) 1 mg IVPUSH Q2H PRN PRN Reason: Pain (severe 7-10) Multivitamins/Minerals/Vitamin C (Multivitamin Tab) 1 tab PO DAILY [facility] Last Admin: 09/18/21 08:04 Dose: 1 tab Documented by: Ondansetron HCl (Ondansetron 4 Mg Tab.Dis) 4 mg PO Q6H PRN PRN Reason: nausea, able to take PO Oxycodone HCl (Oxycodone 5 Mg Tab) 5 mg PO Q4H PRN PRN Reason: Pain (moderate 4-6) Simvastatin (Simvastatin 40 Mg Tab) 40 mg PO BEDTIME [facility] Last Admin: 09/17/21 20:02 Dose: 40 mg Documented by: Sodium Chloride (Sodium Chloride 0.9% 10 Ml Syringe) 10 ml FLUSH 0900,2100 [facility] Last Admin: 09/18/21 08:05 Dose: 10 ml Documented by: Sodium Chloride (Sodium Chloride 0.9% 10 Ml Syringe) 10 ml FLUSH ASDIRECTED PRN PRN Reason: Keep Vein Open Temazepam (Temazepam 15 Mg Cap) 15 mg PO BEDTIME PRN PRN Reason: Sleep Discontinued Medications Acetaminophen (Acetaminophen 325 Mg Tab) 650 mg PO NOW ONE Stop: 09/16/21 22:24 Last Admin: 09/16/21 22:28 Dose: 650 mg Documented by: Acetaminophen (Acetaminophen 650 Mg Supp) 650 mg RECTAL Q4H PRN PRN Reason: Pain (mild 1-3) Stop: 09/18/21 00:46 Last Admin: 09/17/21 07:52 Dose: 650 mg Documented by: Enalapril Maleate (Enalapril 10 Mg Tab) 10 mg PO DAILY [facility] Ceftriaxone Sodium 1 gm/ (Sodium Chloride) 50 mls @ 100 mls/hr IV ONETIME ONE Stop: 09/16/21 23:56 Last Admin: 09/16/21 23:38 Dose: 100 mls/hr Documented by: Azithromycin 500 mg/ Sodium (Chloride) 250 mls @ 250 mls/hr IV ONETIME ONE Stop: 09/17/21 01:28 Last Admin: 09/17/21 00:43 Dose: 250 mls/hr Documented by: Metoprolol Succinate (Metoprolol Succinate 25 Mg Tab.Er) 12.5 mg PO DAILY MAXINE - Exam Quality Assessment: Denies: Supplemental Oxygen General: Reports: Alert, Oriented Neck: Reports: Supple Lungs: Reports: Clear to Auscultation, Normal Respiratory Effort Cardiovascular: Reports: Regular Rate, Regular Rhythm Extremities: No Pedal Edema
== END 2021-09-18 13:25 | disposition home or self-care (01) | DRG 193 ==
LOC: DL.ED 21:38 → DL.MS 09-17 01:06
PROVIDERS: ADMIT Internal Medicine; ATTEND Internal Medicine
DX: J18.9 Pneumonia, unspecified organism (principal); R09.02 Hypoxemia; J96.01 Acute respiratory failure with hypoxia; J02.9 Acute pharyngitis, unspecified; I25.10 Atherosclerotic heart disease of native coronary artery without angina pectoris; I10 Essential (primary) hypertension; H91.90 Unspecified hearing loss, unspecified ear; H54.7 Unspecified visual loss; F41.9 Anxiety disorder, unspecified; Z20.822 Contact with and (suspected) exposure to COVID-19; Z79.82 Long term (current) use of aspirin; Z79.899 Other long term (current) drug therapy; Z88.5 Allergy status to narcotic agent; Z95.5 Presence of coronary angioplasty implant and graft
CPT/HCPCS: 0240U; 36415; 71046; 80048; 80053; 83605; 84484; 85025; 85379; 87040; 87070; 87081; 87205; 87430; 93005; 96365; 99221; 99239; 99285-25; A9270-GY; J0456; J0696; J1644; J7050

== ENCOUNTER 2023-05-26 00:28 | Emergency (ER) | payer MEDICARE, OTHER ==
[2023-05-26] MEDS ORDERED: Acetaminophen 500 MG Tab PO ONE (01:33)
[2023-05-26 01:34] LABS: BASOPHILS PERCENT AUTO 0.2 % (0.0-1.0); EOSINOPHILS PERCENT AUTO 0.9 % (1.0-3.0); HEMATOCRIT 42.8 % (40.0-54.0); HEMOGLOBIN 15.2 g/dL (14.0-18.0); LYMPHOCYTES PERCENT AUTO 8.5 % (20.5-50.1); MEAN CORPUSCULAR HEMOGLOBIN 32.5 pg (27.0-34.0); MEAN CORPUSCULAR HGB CONC 35.5 g/dL (33.0-35.0); MEAN CORPUSCULAR VOLUME 91.5 fL (80-100); MONOCYTES PERCENT AUTO 5.5 % (2-8); NEUTROPHILS PERCENT AUTO 84.9 % (42.2-75.2); PLATELET COUNT,PLT 226 10^3/uL (150-450); RED BLOOD CELL COUNT 4.68 10^6/uL (4.6-6.2); WHITE BLOOD CELL COUNT,WBC 11.8 10^3/uL (5.0-10.0)
[2023-05-26 01:41] LABS: A/G RATIO 1.2; ANION GAP 10.5 mEq/L (7-13); BILIRUBIN TOTAL 1.3 mg/dL (0.2-1.0); BUN/CREATININE RATIO 13.7 (No establ ref range); C-REACTIVE PROTEIN 0.6 mg/dL (0.0-0.9); CALCIUM 9.5 mg/dL (8.5-10.1); CREATININE 1.31 mg/dL (0.70-1.30); EST CRCL DRUG DOSING (CG) 43.34 mL/min; POTASSIUM,K 4.5 mmol/L (3.5-5.1); PROTEIN TOTAL,TP 7.4 g/dL (6.4-8.2)
[2023-05-26] MEDS ORDERED: Azithromycin 250 MG Tab PO ONE (02:31)
[2023-05-26] MEDS ORDERED: Amoxicillin/Clavulanate K 875-125 MG Tab PO ONE (02:31)
[2023-05-26] MEDS ORDERED: cefTRIAXone 2 GM Vial IVPUSH ONE (02:36)
== END 2023-05-26 03:24 | disposition home or self-care (01) ==
LOC: DL.ED 00:28 → MERGE 00:28 → DL.ED 03:24
DX: J18.9 Pneumonia, unspecified organism (principal); E87.1 Hypo-osmolality and hyponatremia; I10 Essential (primary) hypertension; Z20.822 Contact with and (suspected) exposure to COVID-19; Z88.5 Allergy status to narcotic agent; Z79.82 Long term (current) use of aspirin; Z79.899 Other long term (current) drug therapy
CPT/HCPCS: 36415; 71045; 80053; 83605; 85025; 86140; 87081; 87430; 93010; 96374; 99284; 99284-25; A9270-GY; J0696; U0002

== ENCOUNTER 2024-04-06 05:59 | Emergency (ER) | payer MEDICARE, OTHER ==
[2024-04-06] MEDS: Sodium Chloride 0.9% 10 ML Syringe FLUSH PRN (06:56)
[2024-04-06 07:01] LABS: A/G RATIO 1.2; ALBUMIN 3.9 g/dL (3.4-5.0); ANION GAP 6.3 mEq/L (7-13); BILIRUBIN TOTAL 1.4 mg/dL (0.2-1.0); BUN/CREATININE RATIO 10.8 (No establ ref range); CALCIUM 9.5 mg/dL (8.5-10.1); CREATININE 1.39 mg/dL (0.70-1.30); EST CRCL DRUG DOSING (CG) 39.56 mL/min; MAGNESIUM 2.1 mg/dL (1.8-2.4); POTASSIUM,K 4.3 mmol/L (3.5-5.1); PROTEIN TOTAL,TP 7.2 g/dL (6.4-8.2)
[2024-04-06 07:05] LABS: BASOPHILS PERCENT AUTO 0.2 % (0.0-1.0); EOSINOPHILS PERCENT AUTO 1.5 % (1.0-3.0); HEMATOCRIT 44.7 % (40.0-54.0); HEMOGLOBIN 15.3 g/dL (14.0-18.0); LYMPHOCYTES PERCENT AUTO 7.5 % (20.5-50.1); MEAN CORPUSCULAR HEMOGLOBIN 31.6 pg (27.0-34.0); MEAN CORPUSCULAR HGB CONC 34.2 g/dL (33.0-35.0); MEAN CORPUSCULAR VOLUME 92.4 fL (80-100); MONOCYTES PERCENT AUTO 5.6 % (2-8); NEUTROPHILS PERCENT AUTO 85.2 % (42.2-75.2); PLATELET COUNT,PLT 218 10^3/uL (150-450); RED BLOOD CELL COUNT 4.84 10^6/uL (4.6-6.2); WHITE BLOOD CELL COUNT,WBC 10.8 10^3/uL (5.0-10.0)
[2024-04-06] MEDS: Cefepime 2 GM Vial IVPUSH ONE (07:52)
== END 2024-04-06 08:15 | disposition home or self-care (01) ==
LOC: DL.ED 05:59
DX: J18.9 Pneumonia, unspecified organism (principal); I10 Essential (primary) hypertension; Z95.5 Presence of coronary angioplasty implant and graft; Z79.899 Other long term (current) drug therapy; Z79.82 Long term (current) use of aspirin; Z88.5 Allergy status to narcotic agent
CPT/HCPCS: 36415; 71045; 80053; 83735; 83880; 84484; 85025; 93005; 96374; 99285; J0692; J3490

== ENCOUNTER 2024-05-07 11:47 | Emergency (ER) | payer MEDICARE ==
[2024-05-07 12:31] LABS: BASOPHILS PERCENT AUTO 0.3 % (0.0-1.0); HEMATOCRIT 44.9 % (40.0-54.0); HEMOGLOBIN 15.5 g/dL (14.0-18.0); LYMPHOCYTES PERCENT AUTO 16.9 % (20.5-50.1); MEAN CORPUSCULAR HEMOGLOBIN 32.2 pg (27.0-34.0); MEAN CORPUSCULAR HGB CONC 34.5 g/dL (33.0-35.0); MEAN CORPUSCULAR VOLUME 93.2 fL (80-100); NEUTROPHILS PERCENT AUTO 74.8 % (42.2-75.2); PLATELET COUNT,PLT 190 10^3/uL (150-450); RED BLOOD CELL COUNT 4.82 10^6/uL (4.6-6.2)
[2024-05-07] MEDS: Sodium Chloride 0.9% 10 ML Syringe FLUSH PRN (12:41)
[2024-05-07] MEDS: Albuterol/Ipratropium 3.0-0.5 MG/3 ML Neb Soln NEB ONE (12:42)
[2024-05-07 12:55] LABS: B-TYPE NATRIURETIC PEPTIDE,BNP 80 pg/ml (0-100); PROTHROMBIN TIME 10.6 SEC (9.0-12.0); PTT,PARTIAL THROMBOPLSTIN TIME 24.4 SEC (22.0-34.0)
[2024-05-07 12:56] LABS: A/G RATIO 1.2; ALANINE AMINOTRANSFERASE,ALT 9 U/L (16-63); ALBUMIN 3.5 g/dL (3.4-5.0); ALKALINE PHOSPHATASE 103 U/L (46-116); ANION GAP 10.5 mEq/L (7-13); ASPARTATE AMNIOTRANSFERASE,AST 19 U/L (15-37); BLOOD UREA NITROGEN,BUN 12 mg/dL (7-18); BUN/CREATININE RATIO 9.9 (No establ ref range); CALCIUM 9.6 mg/dL (8.5-10.1); CARBON DIOXIDE,CO2 26 mmol/L (21-32); CHLORIDE,CL 102 mmol/L (98-107); CREATININE 1.21 mg/dL (0.70-1.30); EST CRCL DRUG DOSING (CG) 46.09 mL/min; GLUCOSE RANDOM 206 mg/dL (70-99); MAGNESIUM 1.9 mg/dL (1.8-2.4); POTASSIUM,K 4.5 mmol/L (3.5-5.1); PROTEIN TOTAL,TP 6.5 g/dL (6.4-8.2); SODIUM,NA 134 mmol/L (136-145)
[2024-05-07 12:57] LABS: LACTIC ACID 1.3 mmol/L (0.4-2.0)
[2024-05-07 12:58] LABS: C-REACTIVE PROTEIN < 0.50 ng/dL (<=0.50); ESTIMATED GFR 59 mL/min (>=60)
[2024-05-07] MEDS: methylPREDNISolone Sodium Succinate 125 MG/2 ML SDV IVPUSH ONE (13:30)
[2024-05-07] MEDS: Take Home: Albuterol/Ipratropium 3.0-0.5 MG/3 ML Neb Soln, 4 Neb Pack NEB ONE (14:01)
== END 2024-05-07 14:15 | disposition home or self-care (01) ==
LOC: DL.ED 11:47
DX: J45.901 Unspecified asthma with (acute) exacerbation (principal); R05.1 Acute cough; I10 Essential (primary) hypertension; Z95.1 Presence of aortocoronary bypass graft; Z79.82 Long term (current) use of aspirin; Z79.899 Other long term (current) drug therapy; Z88.5 Allergy status to narcotic agent
CPT/HCPCS: 36415; 71046; 80053; 83605; 83735; 83880; 84145; 84484; 85025; 85610; 85730; 86140; 87040; 87081; 87430; 87804; 93005; 93010; 94010; 94667; 96374; 99284; 99285; A9270; J2919; U0002; J3490; J7620-GY

== ENCOUNTER 2025-04-13 19:03 | Emergency (ER) | payer MEDICARE, OTHER ==
[2025-04-13 19:44] LABS: BASOPHILS PERCENT AUTO 0.5 % (0.0-1.0); EOSINOPHILS PERCENT AUTO 3.4 % (1.0-3.0); LYMPHOCYTES PERCENT AUTO 27.7 % (20.5-50.1); MONOCYTES PERCENT AUTO 8.7 % (2-8); NEUTROPHILS PERCENT AUTO 59.7 % (42.2-75.2); PLATELET COUNT,PLT 207 10^3/uL (150-450); RED BLOOD CELL COUNT 4.56 10^6/uL (4.6-6.2); WHITE BLOOD CELL COUNT,WBC 5.6 10^3/uL (5.0-10.0)
[2025-04-13 20:06] LABS: A/G RATIO 1.2; ALANINE AMINOTRANSFERASE,ALT 10.0 U/L (16-63); ASPARTATE AMNIOTRANSFERASE,AST 14.0 U/L (15-37); BILIRUBIN TOTAL 1.1 mg/dL (0.2-1.0); BLOOD UREA NITROGEN,BUN 9.0 mg/dL (7-18); CARBON DIOXIDE,CO2 28.0 mmol/L (21-32); CHLORIDE,CL 100.0 mmol/L (98-107); CREATININE 1.1 mg/dL (0.70-1.30); EST CRCL DRUG DOSING (CG) 49.77 mL/min; ESTIMATED GFR 65.0 mL/min (>=60); GLUCOSE RANDOM 151.0 mg/dL (70-99); POTASSIUM,K 4.3 mmol/L (3.5-5.1); PROTEIN TOTAL,TP 6.8 g/dL (6.4-8.2); SODIUM,NA 133.0 mmol/L (136-145)
[2025-04-13 20:19] LABS: INR 1.0 (0.9-1.2); PTT,PARTIAL THROMBOPLSTIN TIME 24.4 SEC (22.0-34.0)
[2025-04-13] MEDS: Diphtheria,Pertussis(Acell),Tetanus Vaccine 0.5 ML Syringe IM ONE (22:05)
== END 2025-04-13 22:30 | disposition home or self-care (01) ==
LOC: DL.ED 19:03
DX: S01.01XA Laceration without foreign body of scalp, initial encounter (principal); Z23 Encounter for immunization; I10 Essential (primary) hypertension; Z88.8 Allergy status to other drugs, medicaments and biological substances; Z79.82 Long term (current) use of aspirin; Z79.899 Other long term (current) drug therapy; W10.8XXA Fall (on) (from) other stairs and steps, initial encounter
CPT/HCPCS: 36415; 70450; 72125; 73080-LT; 73560-LT; 80053; 84484; 85025; 85610; 85730; 90471; 90715; 93005; 99284-25